=== PATIENT | male | born 1975 | race African-American/Black ===

== ENCOUNTER 2020-07-24 15:14 | Emergency (ER) | payer MEDICAID ==
[~2020-07-24] VITALS: Ht 195.6 cm; Wt 89.0 kg
[2020-07-24 15:24] VITALS: BP 104/53
== END 2020-07-24 17:32 | disposition home or self-care (01) ==
LOC: ER 15:14
DX: Z76.0 Encounter for issue of repeat prescription (principal); J45.909 Unspecified asthma, uncomplicated
CPT/HCPCS: 99283

== ENCOUNTER 2025-06-10 15:46 | Emergency (ER) | payer MEDICAID ==
[~2025-06-10] VITALS: Ht 200.7 cm; Wt 91.0 kg
[2025-06-10 15:49] VITALS: BP 144/89; TEMP 37.1; O2SAT 100
[2025-06-10 15:51] VITALS: PULSE 78; RESP 18; O2SAT 99
[2025-06-10] MEDS ORDERED: ALBU90AE INH (16:34)
== END 2025-06-10 16:50 | disposition home or self-care (01) ==
LOC: ER 15:46
DX: J45.909 Unspecified asthma, uncomplicated (principal); Z76.0 Encounter for issue of repeat prescription
CPT/HCPCS: 99281